=== PATIENT | female | born 1975 | race Caucasian/White ===

== ENCOUNTER 2019-04-07 22:54 | Emergency (ER) | payer BC, OTHER, MEDICAID ==
[2019-04-08 00:14] LABS: ADD MAN DIFF? NO
[2019-04-08 00:15] LABS: WHITE BLOOD COUNT 6.5 10^3/ul (4.8-10.8)
[2019-04-08 00:15] LABS: BASOPHILS % 0.3 % (0.0-2.0); EOSINOPHILS # 0.2 10^3/ul (0.0-0.5); EOSINOPHILS % 3.4 % (0.0-7.0); HEMATOCRIT 38.7 % (37.0-47.0); HEMOGLOBIN 12.3 g/dl (12.0-16.0); LYMPHOCYTES # 2.1 10^3/ul (0.8-2.9); MEAN CORPUSCULAR HEMOGLOBIN 28.3 pg (29.0-33.0); MEAN CORPUSCULAR HGB CONC 31.8 g/dl (32.0-37.0); MEAN PLATELET VOLUME 10.8 fl (7.4-10.4); MONOCYTE # 0.5 10^3/ul (0.3-0.9); NEUTROPHIL # 3.6 10^3/ul (1.6-7.5); NEUTROPHILS % 55.1 % (39.0-77.0); PLATELET COUNT 254 10^3/UL (140-415); RED BLOOD COUNT 4.35 10^6/ul (4.20-5.40); RED CELL DISTRIBUTION WIDTH 13.3 % (11.5-14.5)
[2019-04-08] MEDS: SOD CHLORIDE 0.9% 1,000 ML IV (00:15)
[2019-04-08] MEDS: KETOROLAC 15 MG INJ IV (00:15)
[2019-04-08] MEDS: ONDANSETRON 4 MG INJ IV (00:15)
[2019-04-08] MEDS: BELLADONNA/PHENOBARBITAL TAB PO (00:15)
[2019-04-08] MEDS: LIDOCAINE/MYLANTA 40 ML BTL PO (00:15)
[2019-04-08 00:33] LABS: ALANINE AMINOTRANSFERASE 17 IU/L (13-69); ALBUMIN 3.8 g/dl (3.3-4.9); ALBUMIN/GLOBULIN RATIO 1.15; ALKALINE PHOSPHATASE 48 IU/L (42-121); ANION GAP 8 (5-13); ASPARTATE AMINO TRANSFERASE 16 IU/L (15-46); BILIRUBIN,INDIRECT 0.2 mg/dl (0-1.1); BILIRUBIN,TOTAL 0.2 mg/dl (0.2-1.3); BLOOD UREA NITROGEN 16 mg/dl (7-20); CALCIUM 9.7 mg/dl (8.4-10.2); CARBON DIOXIDE 28 mmol/L (21-31); CHLORIDE 102 mmol/L (97-110); CREATININE 0.68 mg/dl (0.44-1.00); Estimated GFR > 60 mL/min (>60); GLUCOSE 123 mg/dl (70-220); LIPASE 239 U/L (23-300); POTASSIUM 3.8 mmol/L (3.5-5.1); SODIUM 138 mmol/L (135-144); TOTAL PROTEIN 7.1 g/dl (6.1-8.1)
[2019-04-08 00:34] LABS: INR 0.99; PROTIME 13.2 Sec (11.9-14.9)
[2019-04-08 00:35] LABS: PARTIAL THROMBOPLASTIN TIME 26.2 Sec (23.0-35.0)
[2019-04-08 00:44] LABS: ADD UMIC NO; UR ASCORBIC ACID NEGATIVE (NEGATIVE); UR BILIRUBIN (Dip) NEGATIVE (NEGATIVE); UR BLOOD (Dip) NEGATIVE (NEGATIVE); UR CLARITY CLEAR (CLEAR); UR COLOR YELLOW (YELLOW); UR GLUCOSE (Dip) NEGATIVE (NEGATIVE); UR KETONES (Dip) NEGATIVE (NEGATIVE); UR LEUKOCYTE ESTERASE (Dip) NEGATIVE Leu/ul (NEGATIVE); UR NITRITE (Dip) NEGATIVE (NEGATIVE); UR SPECIFIC GRAVITY (Dip) 1.015 (1.003-1.030); UR TOTAL PROTEIN (Dip) NEGATIVE (NEGATIVE); UR UROBILINOGEN (Dip) NEGATIVE (NEGATIVE)
[2019-04-08] MEDS: OXYCODONE/ACETAMINOPHEN (5/325) TAB PO (00:47)
== END 2019-04-08 01:45 | disposition home or self-care (01) ==
LOC: E/R 22:54
DX: K80.20 Calculus of gallbladder without cholecystitis without obstruction (principal); G89.4 Chronic pain syndrome
CPT/HCPCS: 36415; 80053; 81003; 83690; 84703; 85025; 85610; 85730; 96374; 96375; 99284-25